=== PATIENT | male | born 1980 | race Caucasian/White ===

== ENCOUNTER 2017-03-08 17:23 | Emergency (ER) | payer BC ==
[~2017-03-08] VITALS: Ht 160 cm; Wt 61.2 kg
--- NOTE | 2017-03-08 17:30 | NUR ---
Pt moved to room 2b from room 3.
[2017-03-08] MEDS ORDERED: TESTOSTERONE (17:34)
[2017-03-08] MEDS: ALPRAZOLAM 0.25 MG TABLET PO ONE (17:43)
--- NOTE | 2017-03-08 17:50 | NUR ---
Pt BIB [facility], reported pt was having anxiety attack. Pt worried about having stroke or heart attack, hyperventilating. Pt appears very anxious.
[2017-03-08] MEDS ORDERED: ALPRAZOLAM 0.25 MG TABLET ONE (17:53)
[2017-03-08 18:04] LABS: BASOPHILS # (AUTO) 0.1 K/uL (0.0-8.0); BASOPHILS % (AUTO) 1.1 % (0.0-2.0); EOSINOPHILS % (AUTO) 0.8 % (0.0-7.0); HEMATOCRIT 42.8 % (40-50); HEMOGLOBIN 14.4 G/DL (14.0-18.0); LYMPHOCYTES # (AUTO) 1.4 K/UL (0.8-4.8); LYMPHOCYTES % (AUTO) 26.4 % (20.5-51.5); MEAN CORPUSCULAR HEMOGLOBIN 30.2 UUG (27.0-31.0); MEAN CORPUSCULAR HGB CONC 34 g/dL (32.0-37.0); MEAN CORPUSCULAR VOLUME 90.1 FL (82.0-92.0); MONOCYTES # (AUTO) 0.3 K/UL (0.1-1.30); MONOCYTES % (AUTO) 6.1 % (0.0-11.0); NEUTROPHILS # (AUTO) 3.6 K/UL (1.8-8.9); NEUTROPHILS % (AUTO) 65.6 % (38.5-71.5); PLATELET COUNT (AUTO) 236 K/UL (150-450); RED BLOOD CELL COUNT(AUTO) 4.75 MIL/UL (4.7-6.1); WHITE BLOOD COUNT (AUTO) 5.4 K/UL (4.0-11.2)
[2017-03-08] MEDS: IV NS 1000 ML 1,000 ML IV ONE (18:10)
[2017-03-08 18:17] LABS: CREATININE 0.8 mg/dL (0.6-1.3); POTASSIUM 3.1 mmol/L (3.5-5.1)
[2017-03-08 18:23] LABS: BILIRUBIN,TOTAL 0.6 mg/dL (0.2-1.0); TOTAL PROTEIN, SERUM 7.2 g/dL (6.4-8.2)
[2017-03-08] MEDS ORDERED: LORAZEPAM 2 MG/1 ML VIAL ONE (18:31)
[2017-03-08] MEDS: LORAZEPAM 2 MG/1 ML VIAL IV ONE (18:35)
[2017-03-08] MEDS: POTASSIUM CHLORIDE 20 MEQ TAB.PRT.SR PO ONE (19:37)
[2017-03-08] MEDS ORDERED: POTASSIUM CHLORIDE 20 MEQ TAB.PRT.SR ONE (19:47)
--- NOTE | 2017-03-08 20:17 | NUR ---
Patient discharged to home in stable conditon. Written and verbal after care instructions given. Patient verbalizes understanding of instructions. patient left with stable gait, accompanied by family.
[2017-03-08 20:19] VITALS: BP 141/89
== END 2017-03-08 20:20 | disposition home or self-care (01) ==
LOC: ER 17:24
DX: F41.9 Anxiety disorder, unspecified (principal); Z88.1 Allergy status to other antibiotic agents
CPT/HCPCS: 36415; 70030-TC; 71010; 85025; 93005; A4663; J2060; J7030